=== PATIENT | male | born 1980 | race Caucasian/White ===

== ENCOUNTER → 2017-03-30 | Outpatient (CLI) | payer MEDICARE, OTHER ==
[2014-06-15 15:01] VITALS: BP 138/85
[2017-03-30 15:55] LABS: APPEARANCE,URINE Clear (CLEAR); BASOPHILS % 0.7 (0.0-1.5); COLOR,URINE Yellow (YELLOW); EOSINOPHILS % 0.8 % (0.0-6.8); MEAN CORPUSCULAR HEMOGLOBIN 33.3 pg (28.0-34.0); MEAN CORPUSCULAR VOLUME 94.2 fl (80.0-100.0); MONOCYTES % 6.8 % (0.0-11.0); NEUTROPHILS # 1.8 # k/uL (1.4-7.7); OCCULT BLOOD,URINE Negative (NEGATIVE); UROBILINOGEN URINE 0.2 Eu (0.2-1.0)
[2017-03-30 16:17] LABS: eGFR (African) > 60; eGFR (Non-African) > 60
== END ==
LOC: LAB 15:34
PROVIDERS: ATTEND Physician Assistant
DX: Z51.81 Encounter for therapeutic drug level monitoring (principal); F69 Unspecified disorder of adult personality and behavior
CPT/HCPCS: 36415; 80053; 80164; 81002; 85025

== ENCOUNTER 2017-07-16 08:42 | Outpatient (CLI) | payer MEDICARE, OTHER ==
[2014-06-15 15:01] VITALS: BP 138/85
== END 2017-07-16 08:44 ==
LOC: LAB 08:42
PROVIDERS: ATTEND Family Medicine
DX: E03.9 Hypothyroidism, unspecified (principal); E78.1 Pure hyperglyceridemia; Z79.899 Other long term (current) drug therapy
CPT/HCPCS: 36415; 80061; 80164; 84443

== ENCOUNTER 2017-10-24 13:51 | Outpatient (CLI) | payer MEDICARE, OTHER ==
[2014-06-15 15:01] VITALS: BP 138/85
--- NOTE | 2017-10-24 14:36 | Diagnostic Imaging Report ---
RUPERT HERNANDEZ [facility] [id number] [facility].[address] [id number] Report Submission Date: Oct 24, 2017 2:34:26 PM BOOK PACKER Patient Study Name: BLAYNE ORTA Date: Oct 24, 2017 2:01:44 PM BOOK PACKER Modality Type: CR Gender: M Description: LOWER EXTREMITY : 80 Institution: [facility] Physician: RUPERT HERNANDEZ Examination: Plain film ankle History: OLD ANKLE INJURY THAT REINJURED 2 WEEKS AGO; ANTERIOR ANKLE PAIN (Hx) / DROPPED OBJECT ON ANKLE (DICOM Hx) / DROPPED OBJECT ON ANKLE (Pt comments) Findings: 3 views of the ankle demonstrates normal cortical margins. No fracture or dislocation. Talar dome is intact. Inferior and posterior calcaneal spurs. No soft tissue swelling. No joint effusion. Impression: Calcaneal spurs. No acute osseous process. Electronically signed on Oct 24, 2017 2:34:26 PM BOOK PACKER by: Rodger BARKER
== END 2017-10-24 13:52 ==
LOC: RAD 13:51
PROVIDERS: ATTEND Physician Assistant
DX: M25.571 Pain in right ankle and joints of right foot (principal); S99.911A Unspecified injury of right ankle, initial encounter
CPT/HCPCS: 73610

== ENCOUNTER 2018-08-28 16:05 | Outpatient (CLI) | payer MEDICARE, OTHER ==
[2014-06-15 15:01] VITALS: BP 138/85
[2018-08-28 16:45] LABS: BASOPHILS % 0.3 (0.0-1.5); EOSINOPHILS % 1.5 % (0.0-6.8); MEAN CORPUSCULAR HEMOGLOBIN 31.1 pg (28.0-34.0); MONOCYTES % 8.5 % (0.0-11.0); NEUTROPHILS # 2.1 # k/uL (1.4-7.7)
== END 2018-08-28 16:07 ==
LOC: LAB 16:05
PROVIDERS: ATTEND Nurse Practitioner Family
DX: D72.819 Decreased white blood cell count, unspecified (principal)
CPT/HCPCS: 36415; 85025

== ENCOUNTER 2019-04-25 22:04 | Observation (INO) | payer MEDICARE, OTHER ==
[2019-04-25] MEDS ORDERED: ASPIRIN 81 MG CHEW TAB PO ONE (22:25)
--- NOTE | 2019-04-25 22:45 | ED Physician Documentation ---
Chest Pain - HISTORIAN Historian: patient, other (Caregiver) - HPI Stated Complaint: High Blood Pressure Chief Complaint: Chest Pain (HTN) Additional Information: Patient is a 38-year-old male that presents to the ER with caregiver from [employer]. Patient has a cardiac history with pacemaker and occasionally will experience elevated blood pressures. RN that oversees the residents noted blood pressure to be elevated and sent patient out for evaluation. Patient has MR but is able to point to sternum when describing chest pain- he states that it goes into his neck. He states that it started earlier today and "just does not feel well". He ate at [employer] today- denies feeling sick to his stomach. No diaphoresis. Caregiver states that patient is usually very happy and very active but has just been sitting around this evening. Blood pressure STREETCAR OPERATOR by RN at 19:00 was 174/100, manually taken in the ER was 180/122. Onset: hours Timing: gradual onset, still present Duration: gradual Last known Well Date: 04/25/19 Last Known Well Time: 22:45 (Unsure of time) Last known Well Code/Unknown Code: Unknown Context: activity Severity: mild Quality: other ("just hurts"- reproducible) Chest Pain Radiation: other (Points at his throat when describing radiating pain) Chest Pain Signs/Symptoms: denies: nausea, vomiting, diaphoresis, dyspnea, tachycardia Worsened By: nothing Relieved By: nothing - ROS CONST: none MS/LYMPH: none GI/: none EYES/ENT: none SKIN/ENDO: none NEURO/PSYCH: none - PAST HX CO risk factors: hypertension, hyperlipidemia, other (hypothyroid) DVT/PE Risk Factors: none TAD/AAA risk factors: none Neuro deficit: other (depression, schizophrenia, anxiety, ADHD, Explosive disorder) GI disease: GERD Lung disease: other (Uses inhaler prn) Surgeries/Procedures: pacemaker Immunizations: UTD Allergies/Adverse Reactions: Allergies Allergy/AdvReac Type Severity Reaction Status Date / Time No Known Allergies Allergy Verified 04/25/19 22:38 Home Medications: Ambulatory Orders Medication Instructions Recorded Haloperidol [Haldol] 5 mg PO DAILY 05/14/13 - SOCIAL HX Smoking History: quit greater than 1 year Alcohol Use: none Drug Use: none - FAMILY HX Family HX: none, other (Adopted) - VITAL SIGNS Vital Signs: Vital Signs Temp Pulse Resp BP Pulse Ox 61 20 190/122 94 04/25/19 22:04 04/25/19 22:04 04/25/19 22:04 04/25/19 22:04 - REVIEWED ASSESSMENTS Nursing Assessment Reviewed: Yes Vitals Reviewed: Yes Progress - Progress Progress: 23:08 Blood pressure down to 135/91 after 2nd nitro; pain down from 10 to 5 00:05 patient appears to be resting comfortably; chest pain has improved; he is drinking a anthony ED Results Lab/Radiology - Lab Results Lab Results: WBC 5.6, Hgb 13.6, HCT 39.9, Platelets 160 Na 139, K+ 4.2, Cl 98, CO2 34, Glucose 114, BUN/Cr 17/0.69, Trop 0.012, CK 106, CKMB 1.0 - Radiology Radiology Impressions: Pa and lateral chest Clinical history :short of breath Technique pa and lateral upright Findings: The lung macias show a linear atelectasis or scarring in the right upper lobe otherwise clear lung macias. The I see no hilar or mediastinal mass. There is no pleural effusion or lesion of the bony thorax.. There is a left- sided pacemaker with a single lead. The tip of the late overlies the right atrium Impression: No acute pulmonary disease Right atrial pacemaker - Orders Orders: ED Orders Category Date Time Status Continuous EKG monitoring Q30M Care 04/25/19 22:25 Active Continuous Pulse Oximetry Q30M Care 04/25/19 22:[address] IV Lock 1T Care 04/25/19 22:25 Active CHEST 1VIEW [RAD] Stat Exams 04/25/19 Ordered CBC/PLATELET/DIFF Routine Lab 04/25/19 22:25 Ordered CKMB Stat Lab 04/25/19 Ordered CMP Routine Lab 04/25/19 22:25 Ordered CREATINE KINASE Routine Lab 04/25/19 22:25 Ordered TROPONIN I Stat Lab 04/25/19 Ordered Aspirin [Chetan] Med 04/25/19 22:25 Discontinued 324 mg PO NOW ONE Nitroglycerin [Nitroquick] Med 04/25/19 23:00 Ordered 0.4 mg SL Q5M Oxygen Daily Oxygen 04/25/19 22:30 Ordered EKG WITH COMPARISON Stat Ther 04/25/19 22:25 Ordered Chest Pain Physical Exam - EXAM General Appearance: alert, mild distress EENT: eye inspection normal, ENT inspection normal, ANTONIA Neck: nml inspection, no carotid bruit Respiratory: no resp. distress, nml breath sounds CVS: no murmur, no gallop, no friction rub, pulses full, pulses equal, other (paced) Abdomen: soft, normal bowel sounds Extremities: non-tender, normal range of motion, no evidence of injury, no edema Neuro: oriented X3 (Appropriate for disability), motor nml, sensation nml, mood/affect nml Discharge Clincal Impression: Chest pain, Hypertension Referrals: Ann Crespo [Primary Care Provider] - 2 Days Additional Instructions: Will admit patient to observation r/o cardiac event Condition: Good Decision to Admit: [id number] Date of Decison to Admit: 04/26/19 Decision Time: 00:25
[2019-04-25] MEDS: NITROGLYCERIN 0.4 MG TAB.SUBL SL SCH ×3 (23:03→23:18)
[2019-04-25] MEDS ORDERED: MORPHINE SULFATE 5 MG/ML ML IV ONE (23:13)
[2019-04-26] MEDS ORDERED: IPRATROPIUM/ALBUTEROL SULFATE 3 ML AMPUL.NEB NEB PRN (00:33)
[2019-04-26 00:57] VITALS: BMI 30.2
[2019-04-26] MEDS ORDERED: ALBUTEROL 90MCG/PUFF INHALER IH PRN (01:00)
[2019-04-26] MEDS: PROPRANOLOL HCL 20 MG TABLET PO SCH ×2 (01:30→06:53)
--- NOTE | 2019-04-26 01:55 | Diagnostic Imaging Report ---
CLARISSA CHOWDHURY ED [facility] [address] [address] Report Submission Date: Apr 25, 2019 11:43:57 PM CDT Patient Study Name: BLAYNE ORTA Date: Apr 25, 2019 11:16:49 PM CDT Modality Type: DX Gender: M Description: CHEST 2VIEW : 80 Institution: [facility] Physician: CLARISSA CHOWDHURY ED Pa and lateral chest Clinical history :short of breath Technique pa and lateral upright Findings: The lung macias show a linear atelectasis or scarring in the right upper lobe otherwise clear lung macias. The I see no hilar or mediastinal mass. There is no pleural effusion or lesion of the bony thorax.. There is a left- sided pacemaker with a single lead. The tip of the late overlies the right atrium Impression: No acute pulmonary disease Right atrial pacemaker Electronically signed on Apr 25, 2019 11:43:57 PM CDT by: Kev BARKER
[2019-04-26 05:56] LABS: BASOPHILS % 0.2 % (0.0-1.5); NEUTROPHILS # 3.8 # k/uL (1.4-7.7)
[2019-04-26 06:11] LABS: eGFR (Non-African) > 60
[2019-04-26 06:12] LABS: BASOPHILS % 0.3 % (0.0-1.5); NEUTROPHILS # 2.6 # k/uL (1.4-7.7)
[2019-04-26 06:24] LABS: eGFR (Non-African) > 60
[2019-04-26] MEDS ORDERED: LEVOTHYROXINE SODIUM 50 MCG TABLET PO SCH (07:00)
--- NOTE | 2019-04-26 07:55 | Inpatient Progress Note ---
Subjective - Required Recertification Statement I anticipate X number of days because-include discharge plan: 0 - Review of Systems Events since last encounter: Repeat trop and ekg negative at 5 a.m./ trop & EKG scheduled for 11 a.m.- if negative will discharge patient home patient feeling much better but does not want to go home today- wants to hang out at the hospital- explained that heart was showing no sx's of injury and he would be able to go home- patient has MR and states he likes it here; everyone is really nice. General: Denies: Chills, Night Sweats HEENT: Denies: Head Aches, Dysphasia Pulmonary: Denies: Dyspnea, Cough, Pleuritic Chest Pain Cardiovascular: Denies: Chest Pain Gastrointestinal: Denies: Nausea, Vomiting Musculoskeletal: Denies: Back Pain Neurological: Denies: Weakness Objective - Exam Vitals and I&O: Vital Signs Temp 97.7 F 04/26/19 05:35 Pulse 74 04/26/19 06:25 Resp 20 04/26/19 05:35 BP 166/97 04/26/19 05:35 Pulse Ox 97 04/26/19 06:25 Intake & Output 04/25/19 04/25/19 04/26/19 11:59 23:59 11:59 Intake Total 0 Balance 0 Weight 100.698 kg 98.43 kg Intake: IV 0 Left Antecubital 0 Other: Voiding Method Toilet General: Alert, Oriented to Person, Oriented to Place, Cooperative, No acute distress HEENT: PERRLA, Mouth Mucous membr. moist/[place], Nose Mucous membr. moist/[place] Neck: Supple, No JVD, +2 carotid pulse wo bruit Lungs: Clear to auscultation, Normal air movement, Speaks full Sentences Cardiovascular: Regular rate, Normal S1, Normal S2 Abdomen: Normal bowel sounds, Soft, No tenderness Extremities: Normal pulses, No tenderness/swelling Skin: Normal, [place], Warm, Dry Neurological: Normal gait, Normal speech, Strength Equal Bilat Psych/Mental Status: Mental status NL (appropriate for disability), Mood NL, Appropriate Affect, Intact Judgment - Results Results: Laboratory Results WBC 6.10 K/ul (4.00-12.00) 04/26/19 05:40 RBC 4.46 M/ul (3.90-5.20) 04/26/19 05:40 Hgb 14.2 g/dL (12.0-18.0) 04/26/19 05:40 Hct 42.1 % (37.0-53.0) 04/26/19 05:40 MCV 95.0 fl (80.0-100.0) 04/26/19 05:40 MCH 31.8 pg (28.0-34.0) 04/26/19 05:40 MCHC 33.6 g/dL (30.0-36.0) 04/26/19 05:40 RDW 12.6 % (11.3-14.3) 04/26/19 05:40 Plt Count 156 K/mm3 (130-400) 04/26/19 05:40 Neut % (Auto) 61.2 % (39.0-79.0) 04/26/19 05:40 Lymph % (Auto) 30.9 % (16.0-50.0) 04/26/19 05:40 [place] % (Auto) 6.8 % (0.0-11.0) 04/26/19 05:40 Eos % (Auto) 0.9 % (0.0-6.8) 04/26/19 05:40 Baso % (Auto) 0.2 % (0.0-1.5) 04/26/19 05:40 Neut # (Auto) 3.8 # k/uL (1.4-7.7) 04/26/19 05:40 Lymph # (Auto) 1.9 # k/uL (0.6-4.0) 04/26/19 05:40 [place] # (Auto) 0.4 # k/uL (0.0-0.9) 04/26/19 05:40 Eos # (Auto) 0.1 # k/uL (0.0-0.6) 04/26/19 05:40 Baso # (Auto) 0.0 # k/uL (0.0-0.5) 04/26/19 05:40 Sodium 139 mmol/L (137-145) 04/26/19 05:40 Potassium 4.3 mmol/L (3.5-5.1) 04/26/19 05:40 Chloride 101 mmol/L (98-107) 04/26/19 05:40 Carbon Dioxide 30 mmol/L (22-30) 04/26/19 05:40 Anion Gap 12.3 mmol/L (3-11) H 04/26/19 05:40 BUN 12 mg/dL (9-20) 04/26/19 05:40 Creatinine 0.60 mg/dL (0.66-1.25) L 04/26/19 05:40 Estimated Creat Clear 232 04/26/19 05:40 Est GFR ( Amer) > 60 (60-) 04/26/19 05:40 Est GFR (Non-Af Amer) > 60 (60-) 04/26/19 05:40 Glucose 140 mg/dL (74-106) H 04/26/19 05:40 Calcium 9.3 mg/dL (8.4-10.2) 04/26/19 05:40 Total Bilirubin 0.3 mg/dL (0.2-1.3) 04/26/19 05:40 AST 50 U/L (15-46) H 04/26/19 05:40 ALT 46 U/L (13-69) 04/26/19 05:40 Alkaline Phosphatase 80 U/L (38-126) 04/26/19 05:40 Creatine Kinase 106 U/L (55-170) 04/25/19 22:45 CK-MB (CK-2) 1.0 ng/mL (0.0-5.6) 04/25/19 22:45 Troponin I < 0.012 ng/mL (0.012-0.034) L 04/26/19 05:40 Total Protein 7.6 g/dL (6.3-8.2) 04/26/19 05:40 Albumin 4.5 g/dL (3.5-5.0) 04/26/19 05:40 Assessment/Plan - Assessment/Plan (1) Chest pain Status: Acute Assessment: Denies any chest pain Plan: Continue with serial cardiac enzymes and EKG (2) Hypertension Status: Acute Assessment: Stable Plan: Continue with home meds
[2019-04-26] MEDS ORDERED: FAMOTIDINE 20 MG TABLET PO SCH (09:00)
[2019-04-26] MEDS ORDERED: POLYETHYLENE GLYCOL 3350 17 GM POWD.PACK PO SCH (09:00)
[2019-04-26] MEDS ORDERED: GABAPENTIN 300 MG CAPSULE PO SCH (09:00)
[2019-04-26] MEDS ORDERED: ASPIRIN 81 MG CHEW TAB PO SCH (09:00)
[2019-04-26] MEDS ORDERED: LISINOPRIL 10 MG TABLET PO SCH (09:00)
[2019-04-26] MEDS ORDERED: QUEtiapine FUMARATE 25 MG TABLET PO SCH (09:00)
[2019-04-26] MEDS ORDERED: BENZTROPINE MESYLATE 0.5 MG TAB PO SCH (09:00)
[2019-04-26] MEDS ORDERED: OXcarbazepine 300 MG TABLET PO SCH (09:00)
[2019-04-26] MEDS ORDERED: SALINE FLUSH 10 ML DISP.SYRIN IV SCH (09:00)
[2019-04-26] MEDS ORDERED: DOCUSATE SODIUM 100 MG CAPSULE PO SCH (09:00)
[2019-04-26] MEDS ORDERED: LORATADINE 10 MG TABLET PO SCH (09:00)
[2019-04-26 13:34] VITALS: BP 161/101
--- NOTE | 2019-04-27 21:25 | Discharge Summary ---
Discharge Summary - Discharge [facility] Admission Date: 04/25/19 Discharge Date: 04/26/19 Discharge To: Home History of Present Illness: Patient is a 38-year-old male that presents to the ER with caregiver from [employer]. Patient has a cardiac history with pacemaker and occasionally will experience elevated blood pressures. RN that oversees the residents noted blood pressure to be elevated and sent patient out for evaluation. Patient has MR but is able to point to sternum when describing chest pain- he states that it goes into his neck. He states that it started earlier today and "just does not feel well". He ate at [employer] today- denies feeling sick to his stomach. No diaphoresis. Caregiver states that patient is usually very happy and very active but has just been sitting around this evening. Blood pressure ASSEMBLER CONVERTIBLE TOP by RN at 19:00 was 174/100, manually taken in the ER was 180/122. Condition at Discharge: Stable Home Medications: Ambulatory Orders Medication Instructions Recorded Haloperidol [Haldol] 5 mg PO DAILY 05/14/13 Albuterol Sulfate [Ventolin HFN] 04/26/19 Divalproex Sodium [Depakote ER] 500 mg QID 04/26/19 Guaifenesin [Mucinex] 600 mg BID PRN 04/26/19 Linaclotide [Linzess] 145 mg DAILY 04/26/19 Quetiapine Fumarate [Seroquel] 300 mg BID 04/26/19 Sertraline HCl [Zoloft] 50 mg DAILY 04/26/19 clonazePAM [Klonopin] 1 mg 04/26/19 Consultations this Visit: None Procedures this Visit: None Allergies/Adverse Reactions: Allergies Allergy/AdvReac Type Severity Reaction Status Date / Time No Known Allergies Allergy Verified 04/25/19 22:38 Discharge Summary: Patient is a 38-year-old male that was admitted observation for reproducible chest pain and hypertension. Patient denies any chest pain, shortness of breath, or headache. He feels much better. Cardiac enzymes and EKG within normal limits. patient will be discharged home today with caregiver. Patient is to follow up with PCP this upcoming week. - Final Diagnosis (1) Chest pain Problems: Stable Right or Left: Right (2) Hypertension Problems: Stable Right or Left: Right
== END 2019-04-26 14:10 | disposition home or self-care (01) ==
LOC: ED 22:04 → SOUTH 04-26 00:30
PROVIDERS: ADMIT Nurse Practitioner Family; ATTEND Nurse Practitioner Family
DX: R07.9 Chest pain, unspecified (principal); I10 Essential (primary) hypertension
CPT/HCPCS: 36415; 71046; 80053; 82550; 82553; 84484; 85025; 93005; 99234; A9270; G0378; S1016

== ENCOUNTER 2019-07-17 11:51 | Outpatient (CLI) | payer MEDICARE, OTHER | END 2019-07-17 11:56 | LOC: LAB 11:51 | PROVIDERS: ATTEND Nurse Practitioner Family | DX: D72.820 Lymphocytosis (symptomatic) (principal) | CPT/HCPCS: 36415; 86308 ==

== ENCOUNTER 2019-08-04 14:45 | Outpatient (CLI) | payer MEDICARE, OTHER ==
[2019-08-04 15:10] LABS: APPEARANCE,URINE CLEAR (CLEAR); COLOR,URINE YELLOW (YELLOW)
[2019-08-04 15:11] LABS: OCCULT BLOOD,URINE TRACE (NEGATIVE)
== END 2019-08-04 14:50 ==
LOC: LAB 14:45
PROVIDERS: ATTEND Nurse Practitioner Family
DX: N39.0 Urinary tract infection, site not specified (principal)
CPT/HCPCS: 81002